=== PATIENT | male | born 1980 | race Caucasian/White ===

== ENCOUNTER 2017-06-21 10:35 | Inpatient (IN) | payer MEDICAID ==
[~2017-06-21] VITALS: Ht 167.6 cm; Wt 80.8 kg
[2017-06-21 10:38] VITALS: BP 116/81; PULSE 90; RESP 20; TEMP 98.8; O2SAT 98
[2017-06-21 10:52] VITALS: BP 123/77; PULSE 97; RESP 17; TEMP 99.1; O2SAT 97
--- NOTE | 2017-06-21 10:59 | PD ---
HPI Chief Complaint: Psychiatric Symptoms Time Seen by Provider: 10:51 Travel History International Travel<30 days: No Contact w/Intl Traveler<30days: No Traveled to known affect area: No History of Present Illness HPI 36yo M with PMH of depression and PTSD presents to the ED with c/o suicidal thoughts. States he has been depressed. Denies any fever, cough, chest pain, sob, vomiting, abdominal pain, focal weakness or numbness. Denies any homicidal ideations, visual or auditory hallucinations. Denies any drug or alcohol use. PFSH Past Medical History Depression: Yes Psychiatric: Yes (PTSD) Migraines: Yes Influenza Vaccination: No ?: Not Social History Alcohol Use: No Tobacco Use: No Substance Use: No Allergies-Medications (Allergen,Severity, Reaction): Coded Allergies: No Known Allergies (Unverified , 06/21/17) Review of Systems Except as stated in HPI: all other systems reviewed are Neg Physical Exam Narrative GENERAL: 36yo M not in distress. SKIN: Focused skin assessment warm/dry. HEAD: Atraumatic. Normocephalic. EYES: Pupils equal and round at 3mm bilaterally. No scleral icterus. No injection or drainage. ENT: No nasal bleeding or discharge. Mucous membranes pink and moist. NECK: Trachea midline. No JVD. CARDIOVASCULAR: Regular rate and rhythm. No murmur appreciated. RESPIRATORY: No accessory muscle use. Clear to auscultation. Breath sounds equal bilaterally. GASTROINTESTINAL: Abdomen soft, non-tender, nondistended. MUSCULOSKELETAL: No obvious deformities. No clubbing. No cyanosis. No edema. NEUROLOGICAL: Awake and alert. No obvious cranial nerve deficits. Motor grossly within normal limits. Normal speech. Data Data Last Documented VS Vital Signs Date Time Temp Pulse Resp B/P (MAP) Pulse Ox O2 Delivery O2 Flow Rate FiO2 06/21/17 10:52 99.1 97 17 123/77 (92) 97 Room Air Orders Orders Complete Blood Count With Diff (06/21/17 10:54) Comprehensive Metabolic Panel (06/21/17 10:54) Psych Screen (06/21/17 10:54) Drug Screen, Random Urine (06/21/17 10:54) Alcohol (Ethanol) (06/21/17 10:54) Salicylates (Aspirin) (06/21/17 10:54) Tylenol (Acetaminophen) (06/21/17 10:54) Diet Regular Basic (06/21/17 Lunch) Labs Laboratory Tests Test 06/21/17 11:00 06/21/17 11:10 White Blood Count 9.6 TH/MM3 Red Blood Count 5.02 MIL/MM3 Hemoglobin 14.8 GM/DL Hematocrit 42.5 % Mean Corpuscular Volume 84.7 FL Mean Corpuscular Hemoglobin 29.4 PG Mean Corpuscular Hemoglobin Concent 34.8 % Red Cell Distribution Width 14.4 % Platelet Count 248 TH/MM3 Mean Platelet Volume 8.5 FL Neutrophils (%) (Auto) 62.1 % Lymphocytes (%) (Auto) 26.8 % Monocytes (%) (Auto) 9.5 % Eosinophils (%) (Auto) 1.3 % Basophils (%) (Auto) 0.3 % Neutrophils # (Auto) 6.0 TH/MM3 Lymphocytes # (Auto) 2.6 TH/MM3 Monocytes # (Auto) 0.9 TH/MM3 Eosinophils # (Auto) 0.1 TH/MM3 Basophils # (Auto) 0.0 TH/MM3 CBC Comment DIFF FINAL Differential Comment Blood Urea Nitrogen 13 MG/DL Creatinine 1.12 MG/DL Random Glucose 86 MG/DL Total Protein 8.0 GM/DL Albumin 4.0 GM/DL Calcium Level 9.5 MG/DL Alkaline Phosphatase 86 U/L Aspartate Amino Transf (AST/SGOT) 32 U/L Alanine Aminotransferase (ALT/SGPT) 50 U/L Total Bilirubin 0.3 MG/DL Sodium Level 138 MEQ/L Potassium Level 4.2 MEQ/L Chloride Level 103 MEQ/L Carbon Dioxide Level 30.3 MEQ/L Anion Gap 5 MEQ/L Estimat Glomerular Filtration Rate 75 ML/MIN Salicylates Level LESS THAN 1.7 MG/DL Acetaminophen Level LESS THAN 2.0 MCG/ML Ethyl Alcohol Level LESS THAN 3 MG/DL Urine Opiates Screen NEG Urine Barbiturates Screen NEG Urine Amphetamines Screen NEG Urine Benzodiazepines Screen NEG Urine Cocaine Screen NEG Urine Cannabinoids Screen NEG MDM Medical Decision Making Medical Screen Exam Complete: Yes Emergency Medical Condition: Yes Differential Diagnosis Depression vs. suicidal ideation Narrative Course 36yo M with depression here stating he is suicidal. Pt is voluntary and wants to be seen by a psychiatrist so I do not see a need to [facility] Act him at this time. Labs reviewed, no leukocytosis. CMP unremarkable. Utox negative. Alcohol negative. Acetaminophen and salicylate negative. Pt is medically clear for psych evaluation. Diagnosis Primary Impression: Suicidal ideation Roselia Andre DO Jun 21, 2017 10:58
[2017-06-21 11:28] LABS: BASOPHIL % 0.3 % (0.0-2.0); EOSINOPHIL # 0.1 TH/MM3 (0-0.4); EOSINOPHIL % 1.3 % (0.0-4.0); HEMATOCRIT 42.5 % (39.0-51.0); HEMO FLAGS DIFF FINAL; LYMPH % 26.8 % (9.0-44.0); LYMPHOCYTE # 2.6 TH/MM3 (1.0-4.8); MEAN CELL VOLUME 84.7 FL (80.0-100.0); MEAN CORPUSCULAR HEMOGLOBIN 29.4 PG (27.0-34.0); MEAN CORPUSCULAR HGB CONC 34.8 % (32.0-36.0); MONO % 9.5 % (0.0-8.0); NEUT % 62.1 % (16.0-70.0); PLATELET COUNT 248 TH/MM3 (150-450); RED BLOOD COUNT 5.02 MIL/MM3 (4.50-5.90); RED CELL DISTRIBUTION WIDTH 14.4 % (11.6-17.2); WHITE BLOOD COUNT 9.6 TH/MM3 (4.0-11.0)
[2017-06-21 12:00] LABS: ALKALINE PHOSPHATASE 86 U/L (45-117); ALT (GPT) 50 U/L (12-78); ANION GAP 5 MEQ/L (5-15); AST (GOT) 32 U/L (15-37); BICARBONATE 30.3 MEQ/L (21.0-32.0); BLOOD UREA NITROGEN 13 MG/DL (7-18); CHLORIDE 103 MEQ/L (98-107); GLOMERULAR FILTRATION RATE 75 ML/MIN (>89); SODIUM (NA) 138 MEQ/L (136-145); TOTAL BILIRUBIN ADULT 0.3 MG/DL (0.2-1.0)
[2017-06-21 12:27] LABS: ACETAMINOPHEN LESS THAN 2.0 MCG/ML (10.0-30.0); ALCOHOL LESS THAN 3 MG/DL (0-5); POTASSIUM 4.2 MEQ/L (3.5-5.1)
[2017-06-21 22:20] VITALS: BP 115/57; PULSE 79; RESP 18; TEMP 98.3; O2SAT 99
[2017-06-21] MEDS ORDERED: ACETAMINOPHEN 325 MG TAB PO PRN (23:00)
[2017-06-21] MEDS ORDERED: LORazepam 2 MG/ML VIAL IM PRN (23:00)
[2017-06-21] MEDS ORDERED: MAGNESIUM HYDROXIDE SUSP 30 ML CUP PO PRN (23:00)
[2017-06-21] MEDS ORDERED: LORazepam 1 MG TAB PO PRN (23:00)
[2017-06-21] MEDS ORDERED: ALUMINUM/MAGNESIUM/SIMETH 30 ML CUP PO PRN (23:00)
[2017-06-22 00:24] VITALS: BP 102/70; PULSE 92; RESP 18; TEMP 97.8
[2017-06-22 05:39] VITALS: BP 88/54; PULSE 104; RESP 18; TEMP 97.3; O2SAT 96
[2017-06-22] MEDS: NICOTINE 21 MG/24 HR PATCH T-DERMAL SCH (08:53)
[2017-06-22] MEDS ORDERED: hydrOXYzine HCL 50 MG TAB PO PRN (12:00)
[2017-06-22] MEDS ORDERED: ACETAMINOPHEN 325 MG TAB PO PRN (12:00)
[2017-06-22] MEDS ORDERED: MAGNESIUM HYDROXIDE SUSP 30 ML CUP PO PRN (12:00)
[2017-06-22] MEDS ORDERED: ALUMINUM/MAGNESIUM/SIMETH 30 ML CUP PO PRN (12:00)
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
[2017-06-22] MEDS ORDERED: PILL SPLITTER OTHER PRN (12:45)
[2017-06-22] MEDS: SERTRALINE HCL 50 MG TAB PO SCH (13:16)
[2017-06-22 17:08] VITALS: BP 120/75; PULSE 95; RESP 16; TEMP 97; O2SAT 99
[2017-06-22] MEDS: OLANZapine 5 MG TAB PO SCH (20:56)
[2017-06-22] MEDS: REMOVE OLD NICOTINE PATCH T-DERMAL SCH (20:57)
[2017-06-23 06:21] VITALS: BP 99/60; PULSE 62; RESP 17; TEMP 98; O2SAT 96
[2017-06-23] MEDS: NICOTINE 21 MG/24 HR PATCH T-DERMAL SCH (09:00)
[2017-06-23] MEDS: SERTRALINE HCL 50 MG TAB PO SCH (09:43)
[2017-06-23 11:05] LABS: ANION GAP 8 MEQ/L (5-15); BICARBONATE 29.9 MEQ/L (21.0-32.0); BLOOD UREA NITROGEN 14 MG/DL (7-18); CHLORIDE 102 MEQ/L (98-107); GLOMERULAR FILTRATION RATE 75 ML/MIN (>89); SODIUM (NA) 140 MEQ/L (136-145)
[2017-06-23 11:15] LABS: FREE T4 0.85 NG/DL (0.76-1.46); HDL CHOLESTEROL 40.2 MG/DL (40.0-60.0); LDL CHOLESTEROL 127 MG/DL (0-99)
--- NOTE | 2017-06-23 13:34 | HHI.PYPN ---
Subjective Remarks Patient seen in his room with nurse Heike counselor Ashley, patient continues depressed with act for suicidal ideation intent and the planned that he would take the suicide pill if offered. There is still little hope in him. Though he has talked to his who is encouraging. Complains of poor sleep last night. 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) Previous Suicide Attempts: No Homicidal Ideation: No Previous Homicide Attempts: No Mood: Sad Motor Activity: Normal gait Results Labs Test 06/23/17 09:26 Blood Urea Nitrogen 14 MG/DL Creatinine 1.12 MG/DL Random Glucose 87 MG/DL Calcium Level 9.3 MG/DL Sodium Level 140 MEQ/L Potassium Level 4.0 MEQ/L Chloride Level 102 MEQ/L Carbon Dioxide Level 29.9 MEQ/L Anion Gap 8 MEQ/L Estimat Glomerular Filtration Rate 75 ML/MIN Triglycerides Level 152 MG/DL Cholesterol Level 198 MG/DL LDL Cholesterol 127 MG/DL HDL Cholesterol 40.2 MG/DL Cholesterol/HDL Ratio 4.92 RATIO Free Thyroxine 0.85 NG/DL Thyroid Stimulating Hormone 3rd Gen 1.080 uIU/ML Vitals/IOs Vital Signs Date Time Temp Pulse Resp B/P (MAP) Pulse Ox O2 Delivery O2 Flow Rate FiO2 06/23/17 06:21 98.0 62 17 99/60 (73) 96 06/21/17 22:20 Room Air Assessment & Plan Problem List: (1) Major depressive disorder, recurrent severe without psychotic features ICD Codes: F33.2 - Major depressive disorder, recurrent severe without psychotic features (2) PTSD (post-traumatic stress disorder) ICD Codes: F43.10 - Post-traumatic stress disorder, unspecified Assessment & Plan Estimated LOS: days patient continues depressed suicidal with intent and plan that he would take the suicide pill for now continue treatment patient sleep is still markedly interrupted Justification for Cont. Inpt. At this time patient would decompensate the place to the lower level of care Discharge Planning Consideration for return to patient's home once he his recovered Request HC Surrog/Guard Advoc?: No Nav Walker MD Jun 23, 2017 13:34
[2017-06-23 16:52] LABS: HEMOGLOBIN A1a 0.9 %; HEMOGLOBIN A1b 1.9 %; HEMOGLOBIN Ao 85.4 %; HEMOGLOBIN P3 3.7 %
[2017-06-23 18:39] VITALS: BP 100/58; PULSE 61; RESP 16; TEMP 97.6; O2SAT 100
[2017-06-23] MEDS: OLANZapine 5 MG TAB PO SCH (21:00)
[2017-06-23] MEDS: REMOVE OLD NICOTINE PATCH T-DERMAL SCH (21:00)
[2017-06-24 05:50] VITALS: BP 102/64; PULSE 76; RESP 16; TEMP 98.4; O2SAT 97
[2017-06-24] MEDS: SERTRALINE HCL 50 MG TAB PO SCH (08:16)
[2017-06-24] MEDS: NICOTINE 21 MG/24 HR PATCH T-DERMAL SCH (08:18)
--- NOTE | 2017-06-24 12:39 | HHI.PYPN ---
Subjective Remarks Patient seen in [place] with nurse Rocael and counselor Ashley. Patient remains calm with marked decreased range and intensity of his affect at times somewhat incongruous. And melancholic. Patient continues actively suicidal with intent with the plan that he would take the suicide pill if offered to him. But also reconsider jumping off the building where he works. He states his sleep is also continuing to be interrupted His main opinion with remains of very high a risk of this patient killing himself. He has been compliant with his medications. We will increase the Zoloft to 50 mg a.m. increase the Zyprexa to 10 mg at at bedtime Chief Complaint: depression with suicidality Review of Systems Except as stated in HPI: all other systems reviewed are Neg Mental Status Examination Motor Activity: Normal gait Hallucination Type: None Results Vitals/IOs Vital Signs Date Time Temp Pulse Resp B/P (MAP) Pulse Ox O2 Delivery O2 Flow Rate FiO2 06/24/17 05:50 98.4 76 16 102/64 (77) 97 06/21/17 22:20 Room Air Assessment & Plan Problem List: (1) Major depressive disorder, recurrent severe without psychotic features ICD Codes: F33.2 - Major depressive disorder, recurrent severe without psychotic features (2) PTSD (post-traumatic stress disorder) ICD Codes: F43.10 - Post-traumatic stress disorder, unspecified Assessment & Plan Estimated LOS: days patient continues depressed with a significant anhedonia, suicidal ideation intent and plan, with my opinion high risk of suicide see medication adjustment above Justification for Cont. Inpt. At this time patient will decompensate placed in a lower level of care Discharge Planning Considering patient's severe depression placement remains quite problematic Request HC Surrog/Guard Advoc?: Nav Dai MD Jun 24, 2017 12:39
[2017-06-24 18:00] VITALS: BP 129/71; PULSE 88; RESP 17; TEMP 97.9; O2SAT 96
[2017-06-24] MEDS: OLANZapine 5 MG TAB PO SCH (21:00)
[2017-06-25 06:19] VITALS: BP 116/63; PULSE 65; RESP 18; TEMP 97.8; O2SAT 97
[2017-06-25] MEDS: SERTRALINE HCL 50 MG TAB PO SCH (09:20)
--- NOTE | 2017-06-25 14:56 | HHI.PYPN ---
Subjective Remarks Pt seen and discussed with staff. He remains depressed and flat. He reports continued thoughts of SI via jumping off building but states that love for family prevents him. He has been isolative to his room but has been coming out for therapeutic activities. No medication side effects. Chief Complaint: depression with suicidality Mental Status Examination Appearance: Appropriate Consciousness: Alert Orientation: x4 Motor Activity: Normal gait Speech: Unremarkable Language: Adequate Fund of Knowledge: Adequate Attention and Concentration: Adequate Memory: Unremarkable Mood: Other (depressed) Affect: Sad Thought Process & Associations: Intact Thought Content: Appropriate Hallucination Type: None Delusion Type: None Suicidal Ideation: Yes Suicidal Plan: Yes Suicidal Intention: No Homicidal Ideation: No Homicidal Plan: No Homicidal Intention: No Insight: Fair Judgment: Impulsive Results Vitals/IOs Vital Signs Date Time Temp Pulse Resp B/P (MAP) Pulse Ox O2 Delivery O2 Flow Rate FiO2 06/25/17 06:19 97.8 65 18 116/63 (80) 97 06/21/17 22:20 Room Air Assessment & Plan Problem List: (1) Major depressive disorder, recurrent severe without psychotic features ICD Codes: F33.2 - Major depressive disorder, recurrent severe without psychotic features (2) PTSD (post-traumatic stress disorder) ICD Codes: F43.10 - Post-traumatic stress disorder, unspecified Assessment & Plan Continue current tx plan. Estimated LOS: days Justification for Cont. Inpt. impairments in safety Request HC Surrog/Guard Advoc?: No Zeina Barrientos MD Jun 25, 2017 14:56
[2017-06-25 18:24] VITALS: BP 111/68; PULSE 82; RESP 18; TEMP 98; O2SAT 98
[2017-06-25] MEDS: OLANZapine 5 MG TAB PO SCH (21:00)
[2017-06-26 05:43] VITALS: BP 105/63; PULSE 16; RESP 16; TEMP 97.6; O2SAT 97
[2017-06-26] MEDS: SERTRALINE HCL 50 MG TAB PO SCH (09:00)
--- NOTE | 2017-06-26 13:35 | HHI.PYPN ---
Subjective Remarks Pt seen and discussed with staff.He has been seclusive to his room for the morning, but did come out for one of the afternoon activities. He continues to endorse SI, but denies intent to harm in hospital. He reports that today SI has been intermittent instead of constant, which is an improvement. No medication side effects. . Chief Complaint: depression with suicidality Mental Status Examination Appearance: Appropriate Consciousness: Alert Orientation: x4 Motor Activity: Normal gait Speech: Unremarkable Language: Adequate Fund of Knowledge: Adequate Attention and Concentration: Adequate Memory: Unremarkable Mood: Other (depressed) Affect: Sad Thought Process & Associations: Intact Thought Content: Appropriate Hallucination Type: None Delusion Type: None Suicidal Ideation: Yes Suicidal Plan: Yes Suicidal Intention: No Homicidal Ideation: No Homicidal Plan: No Homicidal Intention: No Insight: Fair Judgment: Impulsive Results Vitals/IOs Vital Signs Date Time Temp Pulse Resp B/P (MAP) Pulse Ox O2 Delivery O2 Flow Rate FiO2 06/26/17 05:43 97.6 16 16 105/63 (77 97 Assessment & Plan Problem List: (1) Major depressive disorder, recurrent severe without psychotic features ICD Codes: F33.2 - Major depressive disorder, recurrent severe without psychotic features (2) PTSD (post-traumatic stress disorder) ICD Codes: F43.10 - Post-traumatic stress disorder, unspecified Assessment & Plan Continue current tx plan. Estimated LOS: days Justification for Cont. Inpt. risk of decompensation Request HC Surrog/Guard Advoc?: Zeina Manrique MD Jun 26, 2017 13:35
[2017-06-26 17:04] VITALS: BP 128/81; PULSE 80; RESP 18; TEMP 98.9; O2SAT 97
[2017-06-26] MEDS: OLANZapine 5 MG TAB PO SCH (21:00)
[2017-06-27 06:17] VITALS: BP 127/73; PULSE 67; RESP 18; TEMP 97.5; O2SAT 98
[2017-06-27] MEDS: SERTRALINE HCL 50 MG TAB PO SCH (08:23)
--- NOTE | 2017-06-27 13:28 | HHI.PYPN ---
Subjective Remarks Patient seen in his room with nurse Heike and medical student kaelyn, chart review, patient compliant medication. Patient calm focus though still some mild incongruency with his mood. He states he would still take the suicide pill if offered. Though he feels somewhat better with his mood Chief Complaint: depression with suicidality Review of Systems Except as stated in HPI: all other systems reviewed are Neg Mental Status Examination Appearance: Appropriate Consciousness: Alert Orientation: x4 Motor Activity: Normal gait Speech: Unremarkable Language: Adequate Fund of Knowledge: Adequate Attention and Concentration: Adequate Memory: Unremarkable Mood: Other (depressed) Affect: Sad Thought Process & Associations: Intact Thought Content: Appropriate Hallucination Type: None Delusion Type: None Suicidal Ideation: Yes Suicidal Plan: Yes Suicidal Intention: No Homicidal Ideation: No Homicidal Plan: No Homicidal Intention: No Insight: Fair Judgment: Impulsive Results Vitals/IOs Vital Signs Date Time Temp Pulse Resp B/P (MAP) Pulse Ox O2 Delivery O2 Flow Rate FiO2 06/27/17 06:17 97.5 67 18 127/73 (91) 98 Assessment & Plan Problem List: (1) Major depressive disorder, recurrent severe without psychotic features ICD Codes: F33.2 - Major depressive disorder, recurrent severe without psychotic features (2) PTSD (post-traumatic stress disorder) ICD Codes: F43.10 - Post-traumatic stress disorder, unspecified Assessment & Plan Estimated LOS: days patient continues with major depression, with suicidal intent. He also verifies that he would take the suicide pill if offered. He feels his depression is lifting somewhat. For now continue treatment Justification for Cont. Inpt. At this time patient will decompensate the placed a lower level of care Discharge Planning Patient ambiguous about returning with family once his depression has resolved suicidality has resolved Request HC Surrog/Guard Advoc?: No Nva Walker MD Jun 27, 2017 13:27
[2017-06-27 18:00] VITALS: BP 123/84; PULSE 88; RESP 18; TEMP 98.5; O2SAT 99
[2017-06-27] MEDS: traZODone HCL 50 MG TAB PO PRN (20:55)
[2017-06-27] MEDS: OLANZapine 5 MG TAB PO SCH (20:56)
[2017-06-28 06:03] VITALS: BP 100/74; PULSE 68; RESP 18; TEMP 97.9; O2SAT 94
[2017-06-28] MEDS: SERTRALINE HCL 50 MG TAB PO SCH (09:30)
--- NOTE | 2017-06-28 14:49 | HHI.PYPN ---
Subjective Remarks Patient seen in his room with medical student kaelyn. Chart review. Patient compliant medication. Patient's mood continues to show slight improvement though he still verifies being depressed also verifies the fact that he would take the suicide pill if offered. He said good conversations with his . For now continue treatment Chief Complaint: depression with suicidality Review of Systems Except as stated in HPI: all other systems reviewed are Neg Mental Status Examination Appearance: Appropriate Consciousness: Alert Orientation: x4 Motor Activity: Normal gait Speech: Unremarkable Language: Adequate Fund of Knowledge: Adequate Attention and Concentration: Adequate Memory: Unremarkable Mood: Other (depressed) Affect: Sad Thought Process & Associations: Intact Thought Content: Appropriate Hallucination Type: None Delusion Type: None Suicidal Ideation: Yes Suicidal Plan: Yes Suicidal Intention: No Homicidal Ideation: No Homicidal Plan: No Homicidal Intention: No Insight: Fair Judgment: Impulsive Results Vitals/IOs Vital Signs Date Time Temp Pulse Resp B/P (MAP) Pulse Ox O2 Delivery O2 Flow Rate FiO2 06/28/17 06:03 97.9 68 18 100/74 (83) 94 Assessment & Plan Problem List: (1) Major depressive disorder, recurrent severe without psychotic features ICD Codes: F33.2 - Major depressive disorder, recurrent severe without psychotic features (2) PTSD (post-traumatic stress disorder) ICD Codes: F43.10 - Post-traumatic stress disorder, unspecified Assessment & Plan Estimated LOS: days patient continues depressed and suicidal, patient acknowledges he would take the suicide pill if offered. He also states his having good communication with his and child Justification for Cont. Inpt. At this time patient will decompensate the placed in a lower level of care Discharge Planning Plan is to return patient home once he is sufficiently stabilized Request HC Surrog/Guard Advoc?: No Nav Walker MD Jun 28, 2017 14:49
[2017-06-28 18:53] VITALS: BP 135/78; PULSE 99; RESP 18; TEMP 98.5; O2SAT 99
[2017-06-28] MEDS: OLANZapine 5 MG TAB PO SCH (21:57)
[2017-06-28] MEDS: traZODone HCL 50 MG TAB PO PRN (21:57)
[2017-06-29 05:30] VITALS: BP 107/63; PULSE 65; RESP 18; TEMP 97.7
[2017-06-29] MEDS: SERTRALINE HCL 50 MG TAB PO SCH (09:17)
[2017-06-29] MEDS ORDERED: ZOLO50TA PO (13:53)
[2017-06-29] MEDS ORDERED: ZYPR10TA PO (13:53)
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
== END 2017-06-29 16:00 | disposition home or self-care (01) | DRG 885 ==
LOC: NEPD 10:35 → NEDA 22:49 → H260 23:25
PROVIDERS: ADMIT Psychiatry & Neurology Psychiatry; ATTEND Psychiatry & Neurology Psychiatry
DX: F33.2 Major depressive disorder, recurrent severe without psychotic features (principal); R45.851 Suicidal ideations; F43.10 Post-traumatic stress disorder, unspecified; G47.00 Insomnia, unspecified; Z62.810 Personal history of physical and sexual abuse in childhood; G89.29 Other chronic pain
CPT/HCPCS: 80048; 80053; 80061; 80307; 83036; 84439; 84443; 85025

== ENCOUNTER 2017-12-20 15:03 | Emergency (ER) | payer MEDICAID ==
[~2017-12-20] VITALS: Ht 165.1 cm; Wt 83.5 kg
[~2017-12-20 15:03] MED LIST: ZOLO50TA PO; ZYPR10TA PO
[2017-12-20 15:05] VITALS: PULSE 118; RESP 18; TEMP 98.2; O2SAT 97
[2017-12-20 15:21] VITALS: BP 110/71; PULSE 103; RESP 18; O2SAT 96
[2017-12-20 15:23] VITALS: O2SAT 98
--- NOTE | 2017-12-20 15:26 | PD ---
HPI Chief Complaint: GI Complaint Time Seen by Provider: 15:18 Travel History International Travel<30 days: No Contact w/Intl Traveler<30days: No Traveled to known affect area: No History of Present Illness HPI 37-year-old male patient presents to the ER today with 1 day history of nausea, vomiting, diarrhea multiple times today, feeling weak. He denies any fevers or any other symptoms. He has not been on any antibiotics, does not know of any sick contacts. Modifying Factors: None Associated Signs & Symptoms: Nausea, vomiting, diarrhea Risk Factors: None PFSH Past Medical History Depression: Yes Cancer: No Cardiovascular Problems: No Diabetes: No Headaches: Yes (frequent migraines) Psychiatric: Yes (Depression/PTSD) Migraines: Yes Seizures: No Tetanus Vaccination: > 5 Years Influenza Vaccination: No ?: Not Social History Alcohol Use: No Tobacco Use: No Substance Use: No Allergies-Medications (Allergen,Severity, Reaction): Coded Allergies: No Known Allergies (Unverified Adverse Reaction, Unknown, 12/20/17) Reported Meds & Prescriptions Reported Meds & Active Scripts Active Zoloft (Sertraline HCl) 50 Mg Tab 50 Mg PO DAILY Review of Systems Except as stated in HPI: all other systems reviewed are Neg Physical Exam Narrative GENERAL: Well-developed middle-age male patient currently in mild distress. Awake and oriented 3. SKIN: Focused skin assessment warm/dry. HEAD: Atraumatic. Normocephalic. EYES: Pupils equal and round. No scleral icterus. No injection or drainage. ENT: No nasal bleeding or discharge. Mucous membranes pink and moist. NECK: Trachea midline. No JVD. Supple. CARDIOVASCULAR: Regular rate and rhythm. No murmur appreciated. RESPIRATORY: No accessory muscle use. Clear to auscultation. Breath sounds equal bilaterally. GASTROINTESTINAL: Abdomen soft, non-tender, nondistended. Hepatic and splenic margins not palpable. MUSCULOSKELETAL: No obvious deformities. No clubbing. No cyanosis. No edema. NEUROLOGICAL: Awake and alert. No obvious cranial nerve deficits. Motor grossly within normal limits. Normal speech. PSYCHIATRIC: Appropriate mood and affect; insight and judgment normal. Data Data Last Documented VS Vital Signs Date Time Temp Pulse Resp B/P (MAP) Pulse Ox O2 Delivery O2 Flow Rate FiO2 12/20/17 17:44 115 20 101/59 (73) 97 Room Air 12/20/17 15:05 98.2 Orders Orders Complete Blood Count With Diff (12/20/17 15:18) Comprehensive Metabolic Panel (12/20/17 15:18) Lipase (12/20/17 15:18) Urinalysis - C+S If Indicated (12/20/17 15:18) Iv Access Insert/Monitor (12/20/17 15:18) Ecg Monitoring (12/20/17 15:18) Oximetry (12/20/17 15:18) Sodium Chloride 0.9% Flush (Ns Flush) (12/20/17 15:30) Sodium Chlor 0.9% 1000 Ml Inj (Ns 1000 M (12/20/17 15:30) Ondansetron Inj (Zofran Inj) (12/20/17 15:30) Ct Abd/Pel W Iv Contrast(Rout) (12/20/17 15:59) Iohexol 350 Inj (Omnipaque 350 Inj) (12/20/17 16:53) Sodium Chlor 0.9% 1000 Ml Inj (Ns 1000 M (12/20/17 17:30) Ondansetron Inj (Zofran Inj) (12/20/17 17:30) Ed Discharge Order (12/20/17 18:12) Labs Laboratory Tests Test 12/20/17 15:29 White Blood Count 13.4 TH/MM3 Red Blood Count 5.51 MIL/MM3 Hemoglobin 15.1 GM/DL Hematocrit 46.0 % Mean Corpuscular Volume 83.4 FL Mean Corpuscular Hemoglobin 27.4 PG Mean Corpuscular Hemoglobin Concent 32.8 % Red Cell Distribution Width 13.5 % Platelet Count 242 TH/MM3 Mean Platelet Volume 8.7 FL Neutrophils (%) (Auto) 86.7 % Lymphocytes (%) (Auto) 4.5 % Monocytes (%) (Auto) 5.0 % Eosinophils (%) (Auto) 0.1 % Basophils (%) (Auto) 3.7 % Neutrophils # (Auto) 11.6 TH/MM3 Lymphocytes # (Auto) 0.6 TH/MM3 Monocytes # (Auto) 0.7 TH/MM3 Eosinophils # (Auto) 0.0 TH/MM3 Basophils # (Auto) 0.5 TH/MM3 CBC Comment DIFF FINAL Differential Comment Blood Urea Nitrogen 17 MG/DL Creatinine 1.30 MG/DL Random Glucose 153 MG/DL Total Protein 8.1 GM/DL Albumin 4.0 GM/DL Calcium Level 9.4 MG/DL Alkaline Phosphatase 81 U/L Aspartate Amino Transf (AST/SGOT) 27 U/L Alanine Aminotransferase (ALT/SGPT) 54 U/L Total Bilirubin 0.6 MG/DL Sodium Level 141 MEQ/L Potassium Level 4.2 MEQ/L Chloride Level 107 MEQ/L Carbon Dioxide Level 20.4 MEQ/L Anion Gap 14 MEQ/L Estimat Glomerular Filtration Rate 63 ML/MIN Lipase 81 U/L [facility] Medical Decision Making Medical Screen Exam Complete: Yes Emergency Medical Condition: Yes Medical Record Reviewed: Yes Interpretation(s) Laboratory Tests Test 12/20/17 15:29 White Blood Count 13.4 TH/MM3 (4.0-11.0) Neutrophils (%) (Auto) 86.7 % (16.0-70.0) Lymphocytes (%) (Auto) 4.5 % (9.0-44.0) Basophils (%) (Auto) 3.7 % (0.0-2.0) Neutrophils # (Auto) 11.6 TH/MM3 (1.8-7.7) Lymphocytes # (Auto) 0.6 TH/MM3 (1.0-4.8) Basophils # (Auto) 0.5 TH/MM3 (0-0.2) Random Glucose 153 MG/DL (74-106) Carbon Dioxide Level 20.4 MEQ/L (21.0-32.0) Estimat Glomerular Filtration Rate 63 ML/MIN (>89) Last 24 hours Impressions Abdomen/Pelvis CT 12/20/17 8249 Signed Impressions: Service Date/Time: Wednesday, December 20, 2017 16:48 - CONCLUSION: 1. No obstruction, inflammatory changes or other acute abnormality. 2. Mild fatty infiltration of the liver. 3. Mild atelectasis of the visualized lung bases. Nav Kerr MD Differential Diagnosis Foodborne illness versus dehydration versus metabolic issues Narrative Course Patient was given IV fluid boluses, Zofran in the ER, and on reevaluation at 6 PM, he is feeling improved. Lab work did show leukocytosis and CAT scan was ordered for further evaluation, CAT scan did not show any signs of acute intra- abdominal processes. At this point, my plan would be to release her with follow -up to primary care doctor. Return for any worsening in symptoms as necessary. The plan has been discussed with the patient and he states understanding. Diagnosis Primary Impression: Gastroenteritis Med/Other Pt SpecificInfo: Prescription(s) given Scripts Ondansetron Odt (Zofran Odt) 4 Mg Tab 4 MG SL Q6HR Y for Nausea/Vomiting, #7 TAB 0 Refills Prov: Gonzalez Martinez MD 12/20/17 Disposition: 01 DISCHARGE HOME Condition: Stable Gonzalez Martinez MD Dec 20, 2017 15:25
[2017-12-20] MEDS ORDERED: ONDANSETRON HCL 4 MG/2 ML VIAL IV PUSH ONE ×2 (15:30→17:30)
[2017-12-20] MEDS ORDERED: SODIUM CHLORIDE 0.9% FLUSH 10 ML FLUSH IV FLUSH PRN (15:30)
[2017-12-20] MEDS ORDERED: SODIUM CHLOR 0.9% 1000 ML INJ 1,000 ML IV ONE ×2 (15:30→17:30)
[2017-12-20 15:39] LABS: AUTOMATED NEUTROPHIL # 11.6 TH/MM3 (1.8-7.7); BASOPHIL # 0.5 TH/MM3 (0-0.2); BASOPHIL % 3.7 % (0.0-2.0); EOSINOPHIL % 0.1 % (0.0-4.0); HEMOGLOBIN 15.1 GM/DL (13.0-17.0); LYMPH % 4.5 % (9.0-44.0); LYMPHOCYTE # 0.6 TH/MM3 (1.0-4.8); MEAN CELL VOLUME 83.4 FL (80.0-100.0); MEAN CORPUSCULAR HEMOGLOBIN 27.4 PG (27.0-34.0); MEAN CORPUSCULAR HGB CONC 32.8 % (32.0-36.0); MEAN PLATELET VOLUME 8.7 FL (7.0-11.0); MONOCYTE # 0.7 TH/MM3 (0-0.9); NEUT % 86.7 % (16.0-70.0); PLATELET COUNT 242 TH/MM3 (150-450); RED BLOOD COUNT 5.51 MIL/MM3 (4.50-5.90); RED CELL DISTRIBUTION WIDTH 13.5 % (11.6-17.2); WHITE BLOOD COUNT 13.4 TH/MM3 (4.0-11.0)
[2017-12-20 15:49] LABS: CHLORIDE 107 MEQ/L (98-107); SODIUM (NA) 141 MEQ/L (136-145)
[2017-12-20 15:52] LABS: CALCIUM 9.4 MG/DL (8.5-10.1)
[2017-12-20 15:53] LABS: BICARBONATE 20.4 MEQ/L (21.0-32.0); BLOOD UREA NITROGEN 17 MG/DL (7-18); GLUCOSE,RANDOM 153 MG/DL (74-106)
[2017-12-20 15:56] LABS: ALT (GPT) 54 U/L (12-78); AST (GOT) 27 U/L (15-37); GLOMERULAR FILTRATION RATE 63 ML/MIN (>89)
[2017-12-20 15:57] LABS: TOTAL BILIRUBIN ADULT 0.6 MG/DL (0.2-1.0); TOTAL PROTEIN 8.1 GM/DL (6.4-8.2)
[2017-12-20 15:59] LABS: ALKALINE PHOSPHATASE 81 U/L (45-117)
[2017-12-20 16:38] VITALS: BP 111/66; PULSE 112; RESP 18; O2SAT 98
[2017-12-20] MEDS ORDERED: IOHEXOL 350 MG/ML 10 ML VIAL (for RAD DIAG) IVCONTRAST ONE (16:53)
--- NOTE | 2017-12-20 17:08 | RADRPT ---
EXAM DATE/TIME: 12/20/2017 16:48 [facility] COMPARISON: No previous studies available for comparison. INDICATIONS : Nausea and vomiting. IV CONTRAST: 95 cc Omnipaque 350 (iohexol) IV ORAL CONTRAST: No oral contrast ingested. RADIATION DOSE: 13.46 CTDIvol (mGy) MEDICAL HISTORY : None SURGICAL HISTORY : None. ENCOUNTER: Initial ACUITY: 1 day PAIN SCALE: 0/10 LOCATION: pelvis abdomen TECHNIQUE: Volumetric scanning of the abdomen and pelvis was performed. Using automated exposure control and ad justment of the mA and/or kV according to patient size, radiation dose was kept as low as reasonably achievable to obtain optimal diagnostic quality images. DICOM format image data is available electro nically for review and comparison. FINDINGS: LOWER LUNGS: Trace atelectasis both bases LIVER: Homogeneous mild fatty density without lesion. There is no dilation of the biliary tree. No calcifi ed gallstones. SPLEEN: Normal size without lesion. PANCREAS: Within normal limits. KIDNEYS: Normal in size and shape. There is no mass, stone or hydronephrosis. ADRENAL GLANDS: Within normal limits. VASCULAR: There is no aortic aneurysm. BOWEL/MESENTERY: The stomach, small bowel, and colon demonstrate no acute abnormality. There is no free intraperitone al air or fluid. Normal appendix. ABDOMINAL WALL: Within normal limits. RETROPERITONEUM: There is no lymphadenopathy. BLADDER: No wall thickening or mass. REPRODUCTIVE: Within normal limits. INGUINAL: There is no lymphadenopathy or hernia. MUSCULOSKELETAL: Within normal limits for patient age. CONCLUSION: 1. No obstruction, inflammatory changes or other acute abnormality. 2. Mild fatty infiltration of the liver. 3. Mild atelectasis of the visualized lung bases. Nav Kerr MD on December 20, 2017 at 17:04 Board Certified Radiologist. This report was verified electronically.
[2017-12-20 17:44] VITALS: BP 101/59; PULSE 115; RESP 20; O2SAT 97
[2017-12-20 18:13] VITALS: BP 138/72; PULSE 115; RESP 20; O2SAT 99
[2017-12-20] MEDS ORDERED: ZOFR4TAB3 SL (18:14)
== END 2017-12-20 18:32 | disposition home or self-care (01) ==
LOC: PHED 15:03
DX: K52.9 Noninfective gastroenteritis and colitis, unspecified (principal); D72.829 Elevated white blood cell count, unspecified; K76.0 Fatty (change of) liver, not elsewhere classified; F32.9 Major depressive disorder, single episode, unspecified; F43.10 Post-traumatic stress disorder, unspecified; Z79.899 Other long term (current) drug therapy
CPT/HCPCS: 74177; 80053; 83690; 85025; 96361; 96374; 96376; 99284; J2405; J7030; Q9967